=== PATIENT | female | born 1935 | race Caucasian/White ===

== ENCOUNTER 2017-02-10 10:35 | Emergency (ER) | payer MEDICAID ==
[~2017-02-10] VITALS: Ht 152.4 cm; Wt 72.6 kg
[2017-02-10] MEDS ORDERED: METFORMIN HCL500 M1 ORAL (10:44)
[2017-02-10] MEDS ORDERED: Albuterol ud Inhalation HHN ONE (11:15)
[2017-02-10] MEDS ORDERED: Ipratropium 0.02% Inh Soln 2.5ml UD HHN ONE (11:15)
[2017-02-10 11:32] VITALS: BP 147/60
[2017-02-10 11:33] LABS: BASOPHILS % (AUTO) 1.1 % (0.0-2.0); EOSINOPHILS % (AUTO) 9.2 % (0.0-3.0); LYMPHOCYTES % (AUTO) 23.1 % (20.0-45.0); MEAN CORPUSCULAR HEMOGLOBIN 27.2 PG (27.0-31.0); MEAN CORPUSCULAR HGB CONC 31.1 G/DL (32.0-36.0); MEAN CORPUSCULAR VOLUME 88 FL (80-99); MEAN PLATELET VOLUME 7.8 FL (6.5-10.1); MONOCYTES % (AUTO) 12.9 % (1.0-10.0); NEUTROPHILS % (AUTO) 53.7 % (45.0-75.0); PLATELET COUNT 301 K/UL (150-450); RED BLOOD COUNT 4.79 M/UL (4.20-5.40); RED CELL DISTRIBUTION WIDTH 13.4 % (11.6-14.8); WHITE BLOOD COUNT 5.9 K/UL (4.8-10.8)
[2017-02-10 11:45] LABS: ALANINE AMINOTRANSFERASE 9 U/L (3-33); ALBUMIN/GLOBULIN RATIO 1.2 (1.0-2.7); ANION GAP 13 (5-15); ASPARTATE AMINO TRANSFERASE 13 U/L (5-40); CALCIUM 9.9 mg/dL (8.6-10.2); CARBON DIOXIDE 30 mEQ/L (20-30); CHLORIDE 94 mEQ/L (98-107); CREATININE 1.4 mg/dL (0.5-0.9); HEMOLYSIS 5; SODIUM 137 mEQ/L (135-145); TOTAL PROTEIN 7.6 g/dL (6.6-8.7); TROPONIN I < 0.30 ng/mL (<=0.30)
[2017-02-10 11:48] LABS: APPEARANCE,URINE CLEAR; KETONES,URINE NEGATIVE (NEGATIVE); NITRITE,URINE NEGATIVE (NEGATIVE); PH,URINE 5 (4.5-8.0); PROTEIN,URINE 1+ (NEGATIVE); UROBILINOGEN,URINE NORMAL MG/DL (0.0-1.0)
[2017-02-10 11:55] LABS: CKMB 2.5 ng/mL (< 3.8)
[2017-02-10 12:11] LABS: LEUKOCYTE ESTERASE ,URINE 2+ (NEGATIVE)
[2017-02-10 12:12] LABS: BACTERIA,URINE FEW /HPF; RBC,URINE 0-2 /HPF (0 - 2); SQUAMOUS EPITHELIAL CELL,UR MODERATE /LPF (NONE/OCC)
--- NOTE | 2017-02-10 13:01 | Diagnostic Imaging Report ---
Indications: Shortness of breath and cough for one week Technique: Continuous helical CT imaging of the thorax and upper abdomen was performed with automatic exposure control following intravenous administration of nonionic iodine contrast, on a Siemens sensation [address] scanner. Axial, coronal, and sagittal images were reconstructed at 5 mm slice thickness. CTDI volume(s): 8, 32, 21 mGy Total DLP: 754 mGy-cm Findings: Comparison: None Multiple wedge-shaped, peripherally based areas of cystic bronchiectasis with surrounding parenchymal consolidation and volume loss in both lung bases. Associated small nodular parenchymal calcifications. 12 mm soft tissue nodule within largest cystic space in left lower lobe. 7 mm circumscribed noncalcified nodule anterior segment right upper lobe. No pleural abnormalities. Heart upper limits of normal in size. No pericardial abnormality. Multiple prominent mediastinal lymph nodes up to 2 cm diameter. Small nodular calcifications in mediastinum, left hilum. Scattered arterial mural calcifications. Thoracic aorta normal caliber. No intraluminal filling defects in central pulmonary arteries. Chest wall soft tissues nonfocal. Right kidney significantly smaller than left. Remainder of imaged upper abdominal anatomy unremarkable. Multilevel disc space narrowing with bridging marginal osteophyte formation, vacuum phenomenon in thoracic spine. IMPRESSION: Pulmonary bibasal foci of interstitial fibrosis/scarring with cystic bronchiectasis, very likely chronic inflammatory in nature. Intracystic nodule in left lower lobe is of uncertain significance. Mycetoma must be considered. Calcified old granulomatous disease Noncalcified 7 mm nodule right upper lobe, nonspecific, may be granulomatous or neoplastic in nature. Followup CT scan recommended in 6 months. Borderline cardiomegaly Mediastinal adenopathy may be inflammatory or neoplastic Arteriosclerosis Right renal atrophy suggests long-standing renal artery stenosis Degenerative spondylosis
[2017-02-10 13:14] VITALS: BP 116/77
[2017-02-10] MEDS ORDERED: ALBUTEROL SULF8.5 GM INH (13:54)
[2017-02-10] MEDS ORDERED: LEVAQUIN750 MG ORAL (13:54)
[2017-02-10 14:19] VITALS: BP 121/73
--- NOTE | 2017-02-10 14:27 | Emergency Room Report ---
History of Present Illness General Chief Complaint: Upper Respiratory Illness Source: Patient Present Illness HPI 81-year-old female presents to ED for evaluation. Patient sent in by PMD to have a CAT scan chest. Patient noted to have pneumonia on chest x-ray done recently. Patient described antibiotics by PMD but states that symptoms have not improved. Patient sent in to have CT chest. Patient denies any fevers or chills. Notes productive cough. Denies chest pain. Wheezing noted no history of asthma. Denies sick contacts or recent travel. No other aggravating or relieving factors. Denies any other associated symptoms Allergies: Coded Allergies: HYDROCORTISONE (Verified Allergy, Unknown, 02/10/17) Patient History Past Medical History: DM, HTN Past Surgical History: none Pertinent Family History: none Social History: Denies: alcohol use, drug use, smoking Now: No Immunizations: UTD Reviewed Nursing Documentation: PMH: Agreed, PSxH: Agreed Nursing Documentation-PMH Past Medical History: No History, Except For Hx Hypertension: Yes Hx Diabetes: Yes Review of Systems All Other Systems: negative except mentioned in HPI Physical Exam Vital Signs Date Time Temp Pulse Resp B/P Pulse Ox O2 Delivery O2 Flow Rate FiO2 02/10/17 10:41 98.2 66 20 143/76 95 Room Air 02/10/17 11:46 21 Sp02 EP Interpretation: reviewed, normal General Appearance: no apparent distress, alert, GCS 15, non-toxic Head: normocephalic Eyes: bilateral eye PERRL, bilateral eye normal inspection ENT: normal ENT inspection Neck: normal inspection Respiratory: wheezing Cardiovascular #1: regular rate, rhythm, no edema Gastrointestinal: normal bowel sounds, non tender, soft, non-distended, no guarding, no rebound Rectal: deferred Genitourinary: no CVA tenderness Musculoskeletal: normal inspection Neurologic: alert, oriented x3, responsive, motor strength/tone normal, sensory intact, speech normal Psychiatric: normal inspection Skin: normal inspection Lymphatic: normal inspection Medical Decision Making Diagnostic Impression: Primary Impression: Bronchiectasis Qualified Codes: J47.9 - Bronchiectasis, uncomplicated ER Course Hospital Course 81-year-old female present to ED with persistent cough and wheezing. Recently prescribed antibiotics for pneumonia Differential diagnoses include: URI, bronchitis, asthma/COPD, pneumonia Clinical course Patient placed on stretcher. After initial history, physical exam reveals an elderly female in no acute distress. Bilateral TM unremarkable. No pharyngeal erythema. No tonsillar exudates. No lymphadenopathy. mild wheezing noted I ordered labs, IV fluids, nebulizer treatments, CT Chest Labs reviewed-no leukocytosis noted, hemoglobin/hematocrit stable, electrolytes okay CT Chest - bronchiectasis, pulmonary fibrosis with inflammatory changes EKG - NSR, no acute changes I discussed case with PMD Dr. Baxter. I faxed copy of CT results to him Diagnosis - bronchiectasis Stable and discharged home with prescriptions for albuterol, Levaquin. Instructed to followup with PMD. Return to ED if symptoms recur or worsen Labs Test 02/10/17 11:15 02/10/17 11:21 White Blood Count 5.9 K/UL (4.8-10.8) Red Blood Count 4.79 M/UL (4.20-5.40) Hemoglobin 13.1 G/DL (12.0-16.0) Hematocrit 42.0 % (37.0-47.0) Mean Corpuscular Volume 88 FL (80-99) Mean Corpuscular Hemoglobin 27.2 PG (27.0-31.0) Mean Corpuscular Hemoglobin Concent 31.1 G/DL (32.0-36.0) Red Cell Distribution Width 13.4 % (11.6-14.8) Platelet Count 301 K/UL (150-450) Mean Platelet Volume 7.8 FL (6.5-10.1) Neutrophils (%) (Auto) 53.7 % (45.0-75.0) Lymphocytes (%) (Auto) 23.1 % (20.0-45.0) Monocytes (%) (Auto) 12.9 % (1.0-10.0) Eosinophils (%) (Auto) 9.2 % (0.0-3.0) Basophils (%) (Auto) 1.1 % (0.0-2.0) Sodium Level 137 mEQ/L (135-145) Potassium Level 4.0 mEQ/L (3.4-4.9) Chloride Level 94 mEQ/L (98-107) Carbon Dioxide Level 30 mEQ/L (20-30) Anion Gap 13 (5-15) Blood Urea Nitrogen 28 mg/dL (7-23) Creatinine 1.4 mg/dL (0.5-0.9) Estimat Glomerular Filtration Rate mL/min (>60) Glucose Level 114 mg/dL (74-106) Lactic Acid Level 1.80 mmol/L (0.66-2.22) Calcium Level 9.9 mg/dL (8.6-10.2) Total Bilirubin 0.3 mg/dL (0.0-1.2) Aspartate Amino Transf (AST/SGOT) 13 U/L (5-40) Alanine Aminotransferase (ALT/SGPT) 9 U/L (3-33) Alkaline Phosphatase 51 U/L (35-104) Total Creatine Kinase 51 U/L (26-140) Creatine Kinase MB 2.5 ng/mL (< 3.8) Creatine Kinase MB Relative Index 4.9 Troponin I < 0.30 ng/mL (<=0.30) Pro-B-Type Natriuretic Peptide 998 pg/mL (0-450) Total Protein 7.6 g/dL (6.6-8.7) Albumin 4.2 g/dL (3.5-5.2) Globulin 3.4 g/dL Albumin/Globulin Ratio 1.2 (1.0-2.7) Urine Color Pale yellow Urine Appearance Clear Urine pH 5 (4.5-8.0) Urine Specific [place] 1.020 (1.005-1.035) Urine Protein 1+ (NEGATIVE) Urine Glucose (UA) Negative (NEGATIVE) Urine Ketones Negative (NEGATIVE) Urine Occult Blood 1+ (NEGATIVE) Urine Nitrite Negative (NEGATIVE) Urine Bilirubin Negative (NEGATIVE) Urine Urobilinogen Normal MG/DL (0.0-1.0) Urine Leukocyte Esterase 2+ (NEGATIVE) Urine RBC 0-2 /HPF (0 - 2) Urine WBC 2-4 /HPF (0 - 2) Urine Squamous Epithelial Cells Moderate /LPF (NONE/OCC) Urine Bacteria Few /HPF (NONE) EKG Diagnostic Results Rate: normal Rhythm: NSR ST Segments: no acute changes ASA given to the pt in ED: No Rhythm Strip Diag. Results EP Interpretation: yes Rhythm: NSR, no PVC's, no ectopy CT/MRI/US Diagnostic Results CT/MRI/US Diagnostic Results : Imaging Test Ordered: CT Chest Impression bronchietctasis. interstitial fibrosis/chronic inflammatory changes Last Vital Signs Date Time Temp Pulse Resp B/P Pulse Ox O2 Delivery O2 Flow Rate FiO2 02/10/17 14:19 98.3 63 15 121/73 98 Room Air 02/10/17 13:14 21 Status: improved Disposition: HOME, SELF-CARE Condition: Stable Scripts Albuterol Sulfate* (ALBUTEROL SULFATE MDI*) 8.5 Gm Hfa.aer.ad 2 PUFF INH Q4H Y for cough/wheezing, #1 EA 0 Refills Prov: SILVESTRE GONZALES M.D. 02/10/17 Levofloxacin* (LEVAQUIN*) 750 Mg Tablet 750 MG ORAL DAILY, #5 TAB Prov: SILVESTRE GONZALES M.D. 02/10/17 Patient Instructions: Bronchiectasis SILVESTRE GONZALES M.D. Feb 10, 2017 14:26
== END 2017-02-10 14:19 | disposition home or self-care (01) ==
LOC: EMR 11:03
DX: J47.9 Bronchiectasis, uncomplicated (principal); I10 Essential (primary) hypertension; E11.9 Type 2 diabetes mellitus without complications; Z88.8 Allergy status to other drugs, medicaments and biological substances; R59.0 Localized enlarged lymph nodes; R91.8 Other nonspecific abnormal finding of lung field; M47.814 Spondylosis without myelopathy or radiculopathy, thoracic region
CPT/HCPCS: 36415; 71260; 80053; 81003; 82550; 82553; 83605; 83880; 84484; 85025; 87040; 93005; 94640; 94664; 96360; 99284; J7040; Q9967

== ENCOUNTER 2019-12-12 19:29 | Emergency (ER) | payer MEDICAID ==
[~2019-12-12] VITALS: Ht 170.2 cm; Wt 83.9 kg
[~2019-12-12 19:29] MED LIST: ALBUTEROL SULF8.5 GM INH; LEVAQUIN750 MG ORAL; METFORMIN HCL500 M1 ORAL
[2019-12-12 19:40] VITALS: BP 167/80
--- NOTE | 2019-12-12 19:40 | NUR ---
ED Nurse Note: Pt walked into ED from home for c/o reash under bilat breast x1 month. Pt denies any pain at this time. Pt is aaox4, no acute distress noted, ambulatory with steady gait.
--- NOTE | 2019-12-12 20:24 | Emergency Room Report ---
History of Present Illness General Chief Complaint: Skin Rash/Abscess Source: Patient Present Illness HPI 84-year-old female presents to the emergency department complaining of persistent rash underneath bilateral breast x1 month. Patient reports she was seen at an alternate facility and was placed onto triamcinolone cream with no improvement. Patient reports that the rash has actually progressed in size. She reports some itching she denies pain she reports erythema. Patient states she has a history of diabetes. Pt. denies fevers, chills or swollen tender lymph nodes. Denies lesions/rashes elsewhere on the body. Denies new medications or body washes or creams. Denies swelling of the lips, tongue , throat or airway. Denies wheezing, or shortness of breath. Denies recent travel , recent illness or ill contacts. denies blisters, oral lesions, or sloughing of the skin. Allergies: Coded Allergies: HYDROCORTISONE (Verified Allergy, Unknown, 02/10/17) Patient History Past Medical History: see triage record Past Surgical History: none Pertinent Family History: none Last Menstrual Period: na Now: No : 5 Para: 5 Reviewed Nursing Documentation: PMH: Agreed; PSxH: Agreed Nursing Documentation-PMH Hx Hypertension: Yes Hx COPD: Yes Hx Diabetes: Yes Review of Systems All Other Systems: negative except mentioned in HPI Physical Exam Vital Signs Date Time Temp Pulse Resp B/P (MAP) Pulse Ox O2 Delivery O2 Flow Rate FiO2 12/12/19 19:35 97.5 66 16 167/80 (109) 94 Room Air Sp02 EP Interpretation: reviewed, normal General Appearance: no apparent distress, alert, GCS 15, non-toxic Head: normocephalic, atraumatic Eyes: bilateral eye normal inspection, bilateral eye PERRL ENT: hearing grossly normal, no angioedema, normal voice Neck: full range of motion Respiratory: chest non-tender, lungs clear, normal breath sounds, speaking full sentences, other - Edematous plaque under the bilateral breast with raised annular appearing border. No blisters or vesicles. No crusting no bleeding. Cardiovascular #1: regular rate, rhythm Cardiovascular #2: 0 carotid (R), 0 carotid (L), 0 radial (R), 0 radial (L), 0 femoral (R), 0 femoral (L), 0 dorsalis pedis (R), 0 dorsalis pedis (L) Gastrointestinal: non tender, soft Musculoskeletal: normal range of motion, gait/station normal, non-tender Neurologic: alert, motor strength/tone normal, oriented x3, sensory intact, responsive, speech normal Psychiatric: judgement/insight normal Skin: rash - Edematous plaque under the bilateral breast with raised annular appearing border. No blisters or vesicles. No crusting no bleeding. Lymphatic: no adenopathy Medical Decision Making PA Attestation Dr. Kauffman is my supervising Physician whom patient management has been discussed with. Diagnostic Impression: Primary Impression: Fungal dermatitis ER Course 84-year-old female presents to the emergency department complaining of persistent rash underneath bilateral breast x1 month. Patient reports she was seen at an alternate facility and was placed onto triamcinolone cream with no improvement. Patient reports that the rash has actually progressed in size. She reports some itching she denies pain she reports erythema. Patient states she has a history of diabetes. Pt. denies fevers, chills or swollen tender lymph nodes. Denies lesions/rashes elsewhere on the body. Denies new medications or body washes or creams. Denies swelling of the lips, tongue , throat or airway. Denies wheezing, or shortness of breath. Denies recent travel , recent illness or ill contacts. denies blisters, oral lesions, or sloughing of the skin Ddx considered but are not limited to cellulitis, scabies, shingles, varicella, dermatitis, urticaria, eczema, tinea, viral exanthem, SJS Vital signs: are WNL, pt. is afebrile H&PE are most consistent with otitis most likely fungal in etiology underneath the bilateral breasts. No evidence of acute impending airway compromise, respiratory distress or anaphylaxis at this time. ORDERS: none required at this time, the diagnosis is clinical ED INTERVENTIONS: None required at this time. DISCHARGE: At this time pt. is stable for d/c to home. Will provide printed patient care instructions, and any necessary prescriptions. Care plan and follow up instructions have been discussed with the patient prior to discharge. Last Vital Signs Date Time Temp Pulse Resp B/P (MAP) Pulse Ox O2 Delivery O2 Flow Rate FiO2 12/12/19 19:35 97.5 66 16 167/80 (109) 94 Room Air Disposition: HOME, SELF-CARE Condition: Stable Patient Instructions: Rash Additional Instructions: Take medications as directed. Follow up with a Primary Care Provider in 3-5 days for DERMATOLOGY REFERRAL , even if your symptoms have resolved. Return sooner to ED if new symptoms occur, or current symptoms become worse. - Please note that this Emergency Department Report was dictated using [employer] technology software, occasionally this can lead to erroneous entry secondary to interpretation by the dictation equipment. Maritza Cespedes Dec 12, 2019 20:24
[2019-12-12] MEDS ORDERED: NYSTATIN15 GM TOPIC ×3 (20:30→20:39)
[2019-12-12 20:40] VITALS: BP 158/81
--- NOTE | 2019-12-12 20:40 | NUR ---
ER DISCHARGE NOTE: Patient is cleared to be discharged per ERMD, pt is aox4, on room air, with stable vital signs. pt was given dc and prescription instructions, pt was able to verbalize understanding, pt id band removed. pt is able to ambulate with steady gait. pt took all belongings.
== END 2019-12-12 20:40 | disposition home or self-care (01) ==
LOC: EMR 20:40
DX: B36.8 Other specified superficial mycoses (principal); I10 Essential (primary) hypertension; J44.9 Chronic obstructive pulmonary disease, unspecified; E11.9 Type 2 diabetes mellitus without complications; Z88.8 Allergy status to other drugs, medicaments and biological substances
CPT/HCPCS: 99282

== ENCOUNTER 2020-07-21 21:59 | Emergency (ER) | payer MEDICAID ==
[~2020-07-21] VITALS: Ht 162.6 cm; Wt 72.6 kg
[~2020-07-21 21:59] MED LIST changes: +NYSTATIN15 GM TOPIC
[2020-07-21] MEDS ORDERED: Tylenol #3 tab (300mg/30mg) ONE (22:21)
--- NOTE | 2020-07-21 22:28 | Emergency Room Report ---
History of Present Illness General Chief Complaint: Multiple Trauma/Fall Source: Patient, Family Member Present Illness HPI This an 85-year-old female who is right-hand dominant. She presents with chief plaint of injuries from a fall. [facility], she tripped and fell. She fell on her knee and left shoulder. Also hit her face on the pavement. Did not pass out. Most of her pain is to the left shoulder. Pain is 9 out of 10. Worse with movement. Better with rest. No other injury. Did not pass out. Allergies: Coded Allergies: HYDROCORTISONE (Verified Allergy, Unknown, 02/10/17) COVID-19 Screening Contact w/high risk pt: No Experienced COVID-19 symptoms?: No COVID-19 Testing performed HAZMAT CDL A DRIVER: No Patient History Past Medical History: see triage record, old chart reviewed, DM, HTN Past Surgical History: other Pertinent Family History: none Social History: Denies: smoking Immunizations: other Reviewed Nursing Documentation: PMH: Agreed; PSxH: Agreed Nursing Documentation-PMH Hx Hypertension: Yes Hx COPD: Yes Hx Diabetes: Yes Review of Systems Eye: Denies: eye pain, blurred vision ENT: Denies: ear pain, nose congestion, throat swelling Respiratory: Denies: cough, shortness of breath Cardiovascular: Denies: chest pain, palpitations Gastrointestinal: Denies: abdominal pain, diarrhea, nausea, vomiting Musculoskeletal: Reports: joint pain; Denies: back pain Skin: Denies: rash Neurological: Denies: headache, numbness Endocrine: Denies: increased thirst, increased urine Hematologic/Lymphatic: Denies: easy bruising All Other Systems: negative except mentioned in HPI Physical Exam Vital Signs Date Time Temp Pulse Resp B/P (MAP) Pulse Ox O2 Delivery O2 Flow Rate FiO2 07/21/20 22:08 98.6 69 16 147/70 (95) 97 Room Air Vitals unremarkable Sp02 EP Interpretation: reviewed, normal General Appearance: well appearing, no apparent distress, alert Head: normocephalic, atraumatic Eyes: bilateral eye PERRL, bilateral eye EOMI ENT: hearing grossly normal, normal pharynx, other - Abrasion and swelling to the upper lip midline. No obvious dental injury. Tender to palpation. Neck: full range of motion, supple, no meningismus Respiratory: chest non-tender, lungs clear, normal breath sounds Cardiovascular #1: regular rate, rhythm, no murmur Gastrointestinal: normal bowel sounds, non tender, no mass, no organomegaly, no bruit, non-distended Musculoskeletal: back normal, gait/station normal, other - Left shoulder: Diffuse tenderness to the proximal humerus. There is some edema. Elbow is nontender. Wrist is nontender. Pulse normal. Sensation normal. Left knee: She has ecchymosis and abrasion to the patella. Decreased range of motion secondary to pain. Psychiatric: mood/affect normal Procedures Splinting Splinting : Consent: Verbal Location: Left shoulder Pre-Made Type: Shoulder immobilizer Pre-Proc Neuro Vasc Exam: normal Post-Proc Neuro Vasc Exam: normal Patient Tolerated: Well Complications: None Medical Decision Making Diagnostic Impression: Primary Impression: Humerus surgical neck fracture Qualified Codes: S42.221A - 2-part displaced fracture of surgical neck of right humerus, initial encounter for closed fracture Additional Impressions: Facial contusion Qualified Codes: S00.83XA - Contusion of other part of head, initial encounter Contusion of knee, left Qualified Codes: S80.02XA - Contusion of left knee, initial encounter ER Course Patient presents with a fall and has humeral surgical neck fracture. No evidence of intracranial bleed. No evidence of any knee fracture. Will discharge home. Other X-Ray Diagnostic Results Other X-Ray Diagnostic Results #1: X-Ray ordered: Shoulder x-rays, left # of Views/Limited Vs Complete: Complete Indication: Pain EP Interpretation: Yes Interpretation: no dislocation, no soft tissue swelling, other - Surgical neck fracture, displaced Impression: Other - Displaced surgical neck fracture Electronically Signed by: Joel Shepherd MD Other X-Ray Diagnostic Results #2: X-Ray ordered: Left knee x-rays # of Views/Limited Vs Complete: Complete Indication: Pain EP Interpretation: Yes Interpretation: no dislocation, no soft tissue swelling, no fractures Impression: No acute disease Electronically Signed by: Joel Shepherd MD CT/MRI/US Diagnostic Results CT/MRI/US Diagnostic Results : Imaging Test Ordered: CT facial bones Impression Negative per radiologist Last Vital Signs Date Time Temp Pulse Resp B/P (MAP) Pulse Ox O2 Delivery O2 Flow Rate FiO2 07/21/20 22:08 98.6 69 16 147/70 (95) 97 Room Air Status: improved Disposition: HOME, SELF-CARE Condition: Stable Scripts Acetaminophen With Codeine (T#3) (TYLENOL #3 TAB*) Y Tab 1 TAB ORAL Q8H PRN for For Pain, #30 TAB Prov: Joel Shepherd MD 07/21/20 Referrals: [facility],REFERRING (PCP) Additional Instructions: Wear shoulder immobilizer. Follow-up with in 1 to 2 days. You will need a referral to see orthopedic doctor. Return if symptoms worsen. Joel Shepherd MD Jul 21, 2020 22:28
[2020-07-21] MEDS ORDERED: Tylenol #3 tab (300mg/30mg) ORAL ONE (22:30)
[2020-07-21] MEDS ORDERED: ACETAMINOPHEN-1 EAC1 ORAL (22:55)
--- NOTE | 2020-07-21 22:58 | Diagnostic Imaging Report ---
EXAM: CT Maxillofacial Without Intravenous Contrast CLINICAL HISTORY: TRAUMA 07/21/20 22:46 - Hospital tech - Study: CT Facial Bones no Contrast. 07/21/20 22:48 - [facility] - Ori/id:[id number] said: Pt walked in c/o pain LT arm s/p fall around 1919. Per daughter, pt was walking,tripped and fell foward, hitting her upper lip, LT arm, LT leg. Abrasion noted on LT knee. PT unable to move LT shoulder d/t pain. NO KO TECHNIQUE: Axial computed tomography images of the face without intravenous contrast. CTDI is 15.3 mGy and DLP is 329.2 mGy-cm. One or more of the following dose reduction techniques were used: automated exposure control, adjustment of the mA and/or kV according to patient size, use of iterative reconstruction technique. COMPARISON: None. FINDINGS: Bones/joints: No acute fracture. Soft tissues: Unremarkable. Orbits: Unremarkable. Sinuses: Unremarkable. No air-fluid levels. IMPRESSION: No acute fracture.
[2020-07-21 23:00] VITALS: BP 141/77
[2020-07-21 23:05] VITALS: BP 141/77
--- NOTE | 2020-07-22 13:33 | Diagnostic Imaging Report ---
INDICATION: Knee pain TECHNIQUE: XRAY Knee 3v LT Multiple views of the left knee were obtained COMPARISON: None FINDINGS: There is no acute fracture or dislocation. Mild tricompartmental joint osteoarthrosis. No acute soft tissue abnormality. No significant knee joint effusion. There is vascular calcification. IMPRESSION: No acute fracture or dislocation.
--- NOTE | 2020-07-22 13:36 | Diagnostic Imaging Report ---
INDICATION: Left shoulder pain TECHNIQUE: XRAY Shoulder Compl L Multiple views of the left shoulder were obtained COMPARISON: None FINDINGS: There is an acute fracture through the left humeral surgical neck, with inferior and posterior displacement of the distal humerus. The humeral head appears well-seated in the glenoid. There is likely fragmentation of the surgical neck., The dominant fracture fragment is seen on the outlet view. There is mild acromioclavicular joint osteoarthrosis. There is soft tissue swelling overlying the left shoulder. Visualized left lung is clear. IMPRESSION: Acute, moderately displaced left surgical humeral neck fracture without evidence of dislocation. Suspected associated greater tubercle fracture.
== END 2020-07-21 23:05 | disposition home or self-care (01) ==
LOC: EMR 22:21
DX: S42.222A 2-part displaced fracture of surgical neck of left humerus, initial encounter for closed fracture (principal); S00.83XA Contusion of other part of head, initial encounter; S80.02XA Contusion of left knee, initial encounter; M17.12 Unilateral primary osteoarthritis, left knee; E11.9 Type 2 diabetes mellitus without complications; I10 Essential (primary) hypertension; J44.9 Chronic obstructive pulmonary disease, unspecified; S00.511A Abrasion of lip, initial encounter; W01.0XXA Fall on same level from slipping, tripping and stumbling without subsequent striking against object, initial encounter; Y92.9 Unspecified place or not applicable; Z88.8 Allergy status to other drugs, medicaments and biological substances
CPT/HCPCS: 70486; 73030; 73562; Z7502; 99284

== ENCOUNTER 2020-11-30 09:43 | Emergency (ER) | payer MEDICAID ==
[~2020-11-30] VITALS: Ht 154.9 cm; Wt 62.6 kg
[~2020-11-30 09:43] MED LIST changes: +ACETAMINOPHEN-1 EAC1 ORAL
[2020-11-30] MEDS ORDERED: Acetaminophen 500mg (ES) tab ORAL ONE (10:15)
--- NOTE | 2020-11-30 10:24 | Emergency Room Report ---
History of Present Illness General Chief Complaint: Lower Back Pain or Injury Source: Patient Present Illness HPI 85-year-old female presents with right lower back pain. Son at bedside states she has been having pain for the last 3 days. Starting in the lower back and radiating down the buttock. 10 out of 10, dull. No bowel or bladder incontinence. No leg or motor weakness. No prior visits history of back injury. No other aggravating relieving factors. Denies any other associated symptoms Allergies: Coded Allergies: HYDROCORTISONE (Verified Allergy, Unknown, 11/30/20) COVID-19 Screening Contact w/high risk pt: No Experienced COVID-19 symptoms?: No COVID-19 Testing performed DREDGE MATE: No Patient History Past Medical History: DM, HTN, COPD Past Surgical History: none Pertinent Family History: none Social History: Denies: smoking, alcohol use, drug use Now: No Immunizations: UTD Reviewed Nursing Documentation: PMH: Agreed; PSxH: Agreed Nursing Documentation-PMH Hx Hypertension: Yes Hx COPD: Yes Hx Diabetes: Yes Review of Systems All Other Systems: negative except mentioned in HPI Physical Exam Vital Signs Date Time Temp Pulse Resp B/P (MAP) Pulse Ox O2 Delivery O2 Flow Rate FiO2 11/30/20 09:53 98.2 68 18 138/66 (90) 94 Room Air Sp02 EP Interpretation: reviewed, normal General Appearance: no apparent distress, alert, GCS 15, non-toxic Head: normocephalic, atraumatic Eyes: bilateral eye normal inspection, bilateral eye PERRL ENT: hearing grossly normal, normal pharynx, no angioedema, normal voice Neck: full range of motion, supple/symm/no masses Respiratory: chest non-tender, lungs clear, normal breath sounds, speaking full sentences Cardiovascular #1: regular rate, rhythm, no edema Cardiovascular #2: 2+ carotid (R), 2+ carotid (L), 2+ radial (R), 2+ radial (L), 2+ dorsalis pedis (R), 2+ dorsalis pedis (L) Gastrointestinal: normal bowel sounds, non tender, soft, non-distended, no guarding, no rebound Rectal: deferred Genitourinary: normal inspection, no CVA tenderness, vertebral tenderness Musculoskeletal: back normal, normal range of motion, gait/station normal, tender - paraspinal lumbar tenderness Neurologic: alert, motor strength/tone normal, oriented x3, sensory intact, responsive, speech normal Psychiatric: judgement/insight normal, memory normal, mood/affect normal, no suicidal/homicidal ideation Reflexes: 3+ bicep (R), 3+ bicep (L), 3+ tricep (R), 3+ tricep (L), 3+ knee (R), 3+ knee (L) Skin: no rash Lymphatic: no adenopathy Medical Decision Making Diagnostic Impression: Primary Impression: Low back pain Qualified Codes: M54.41 - Lumbago with sciatica, right side ER Course Hospital Course 85-year-old female presents with back pain Differential diagnoses include: Fracture, dislocation, sprain, contusion Clinical course Patient placed on stretcher. After initial history and physical, I ordered pain medications and MRI L-spine MRI shows disc bulge at nearly every level with multilevel degenerative changes. Foraminal stenosis at L5-S1 Discussed findings with patient and son. Patient states pain is well controlled after Tylenol and Lidoderm patch. Has no focal deficits. Will discharge home. Given copies of MRI report. States will follow up with her PMD. I will provide Ortho referral Diagnosis - low back pain Stable and discharged to home with prescription for tylenol, lidoderm. apply ice, keep elevated. weight bear as tolerated. Followup with PMD/ortho. Return to ED if symptoms recur or worsen CT/MRI/US Diagnostic Results CT/MRI/US Diagnostic Results : Imaging Test Ordered: MRI L-spine Impression Procedure: MRI L Spine no Contrast EXAM: MR Lumbar Spine Without Intravenous Contrast CLINICAL HISTORY: BK PAIN TECHNIQUE: Magnetic resonance images of the lumbar spine without intravenous contrast in multiple planes. COMPARISON: None FINDINGS: Vertebrae: Unremarkable. No acute fracture. Spinal cord: Conus medullaris terminates normally at the level of T12- L1. Normal signal. Soft tissues: Unremarkable. Other: Atrophic right kidney. DISCS/SPINAL CANAL/NEURAL FORAMINA: Lower thoracic spine: Mild degenerative changes. No spinal canal stenosis. No significant neural foraminal stenosis. L1-L2: Disc bulge, facet degenerative changes, and ligamentum flavum hypertrophy. Mild to moderate spinal canal stenosis. Mild to moderate left neuroforaminal stenosis. L2-L3: Disc bulge, facet degenerative changes, and ligamentum flavum hypertrophy. Mild spinal canal stenosis. Mild bilateral neural foraminal stenoses. L3-L4: Disc bulge, facet degenerative changes, and ligamentum flavum hypertrophy. Borderline spinal canal stenosis. Moderate left neuroforaminal stenosis. L4-L5: Mild disc bulge, facet degenerative changes, and ligamentum flavum hypertrophy. Severe spinal canal stenosis. Mild to moderate neural foraminal stenoses. L5-S1: Disc bulge, facet degenerative changes, and ligamentum flavum hypertrophy. No significant spinal canal stenosis. Moderate to severe right and mild left neural foraminal stenoses. IMPRESSION: 1. No acute fracture. 2. Multilevel degenerative changes of the spine as described above. Of note, severe spinal canal stenosis at L4-5. Last Vital Signs Date Time Temp Pulse Resp B/P (MAP) Pulse Ox O2 Delivery O2 Flow Rate FiO2 11/30/20 09:53 98.2 68 18 138/66 (90) 94 Room Air Status: improved Disposition: HOME, SELF-CARE Condition: Stable Scripts Lidocaine Patch* (Lidoderm Patch*) 1 Each Adh..patch 1 PATCH TOPIC DAILY, #7 PATCH 0 Refills Patch(es) may remain in place for up to 12 hours in any 24-hour period. Prov: Chinedu Madera MD 11/30/20 Acetaminophen* (TYLENOL EXTRA STRENGTH*) 500 Mg Tablet 500 MG ORAL Q8H PRN for Prn Headache/Temp > 101, #30 TAB 0 Refills Prov: Chinedu Madera MD 11/30/20 Referrals: [facility],REFERRING (PCP) Chinedu Madera MD Nov 30, 2020 10:23
--- NOTE | 2020-11-30 12:52 | Diagnostic Imaging Report ---
EXAM: MR Lumbar Spine Without Intravenous Contrast CLINICAL HISTORY: BK PAIN TECHNIQUE: Magnetic resonance images of the lumbar spine without intravenous contrast in multiple planes. COMPARISON: None FINDINGS: Vertebrae: Unremarkable. No acute fracture. Spinal cord: Conus medullaris terminates normally at the level of T12- L1. Normal signal. Soft tissues: Unremarkable. Other: Atrophic right kidney. DISCS/SPINAL CANAL/NEURAL FORAMINA: Lower thoracic spine: Mild degenerative changes. No spinal canal stenosis. No significant neural foraminal stenosis. L1-L2: Disc bulge, facet degenerative changes, and ligamentum flavum hypertrophy. Mild to moderate spinal canal stenosis. Mild to moderate left neuroforaminal stenosis. L2-L3: Disc bulge, facet degenerative changes, and ligamentum flavum hypertrophy. Mild spinal canal stenosis. Mild bilateral neural foraminal stenoses. L3-L4: Disc bulge, facet degenerative changes, and ligamentum flavum hypertrophy. Borderline spinal canal stenosis. Moderate left neuroforaminal stenosis. L4-L5: Mild disc bulge, facet degenerative changes, and ligamentum flavum hypertrophy. Severe spinal canal stenosis. Mild to moderate neural foraminal stenoses. L5-S1: Disc bulge, facet degenerative changes, and ligamentum flavum hypertrophy. No significant spinal canal stenosis. Moderate to severe right and mild left neural foraminal stenoses. IMPRESSION: 1. No acute fracture. 2. Multilevel degenerative changes of the spine as described above. Of note, severe spinal canal stenosis at L4-5.
[2020-11-30] MEDS ORDERED: LIDODERM700 M1 TOPIC (12:56)
[2020-11-30] MEDS ORDERED: TYLENOL EXTRA500 MG ORAL (12:56)
[2020-11-30 13:03] VITALS: BP 138/66
== END 2020-11-30 13:05 | disposition home or self-care (01) ==
LOC: EMR 10:08
DX: M54.41 Lumbago with sciatica, right side (principal); Z88.6 Allergy status to analgesic agent; E11.9 Type 2 diabetes mellitus without complications; J44.9 Chronic obstructive pulmonary disease, unspecified; M48.07 Spinal stenosis, lumbosacral region
CPT/HCPCS: 72148; Z7502; 99284